=== PATIENT | female | born 1990 | race African-American/Black ===

== ENCOUNTER 2019-03-24 23:06 | Emergency (ER) | payer OTHER ==
[~2019-03-24] VITALS: Ht 162.6 cm; Wt 121.6 kg
[~2019-03-24 23:06] MED LIST: ADULT SUPPOSIT1 EACH RECTAL; COLACE100 MG PO
[2019-03-25] MEDS ORDERED: VALIUM5 MG PO (02:15)
[2019-03-25] MEDS ORDERED: MOBIC15 MG PO (02:15)
[2019-03-25 02:19] VITALS: BP 104/48
== END 2019-03-25 02:20 | disposition home or self-care (01) ==
LOC: ER 23:06
DX: R07.89 Other chest pain (principal); M25.511 Pain in right shoulder

== ENCOUNTER 2019-04-23 10:54 | Emergency (ER) | payer OTHER ==
[~2019-04-23] VITALS: Ht 162.6 cm; Wt 121.6 kg
[~2019-04-23 10:54] MED LIST changes: +MOBIC15 MG PO; +VALIUM5 MG PO
[2019-04-23 12:08] VITALS: BP 134/93
== END 2019-04-23 12:07 | disposition home or self-care (01) ==
LOC: ER 10:54
DX: R76.11 Nonspecific reaction to tuberculin skin test without active tuberculosis (principal)